=== PATIENT | female | born 1970 | race Caucasian/White ===

== ENCOUNTER 2019-02-01 14:56 | Inpatient (IN) ==
[2019-02-01] MEDS ORDERED: TYLENOL PO PRN (17:09)
[2019-02-01] MEDS: NORCO-10 PO PRN ×2 (17:33→21:58)
[2019-02-01] MEDS ORDERED: SALINE LOCK IV FLUID XX ONE (18:19)
[2019-02-01] MEDS ORDERED: ROCEPHIN 1 GM in NS 50 ML IV ONE (18:23)
[2019-02-01] MEDS ORDERED: NS 500 ML ONE (19:38)
[2019-02-01] MEDS ORDERED: LYRICA PO SCH (21:00)
[2019-02-01] MEDS: LYRICA PO SCH (21:58)
[2019-02-01] MEDS: GLUCOPHAGE PO SCH (21:59)
[2019-02-01] MEDS: HUMULIN N SUBQ SCH (21:59)
[2019-02-02] MEDS: PERCOCET-10 PO SCH ×2 (00:09→21:23)
[2019-02-02] MEDS: NORCO-10 PO PRN ×4 (04:14→16:08)
[2019-02-02] MEDS: HUMULIN N SUBQ SCH ×3 (05:16→18:20)
[2019-02-02] MEDS: ACTOS PO SCH (08:21)
[2019-02-02] MEDS: CYMBALTA PO SCH (08:22)
[2019-02-02] MEDS: PRILOSEC PO SCH (08:22)
[2019-02-02] MEDS: LYRICA PO SCH ×2 (08:23→21:24)
[2019-02-02 08:44] LABS: BASO# 0.02 X1000 (0.0-0.2); BASO% 0.3 % (0.0-0.8); EOS# 0.25 X1000 (0.0-0.7); EOS% 3.5 % (0.0-10.0); HEMATOCRIT 42.5 % (37.0-47.0); HEMOGLOBIN 14.2 g/dL (12.0-16.0); IMM GRAN# 0.08 X1000 (0.0-0.04); IMM GRAN% 1.1 % (0.0-0.5); LYMPH# 2.54 X1000 (1.2-3.4); MCH 29.2 PG (27-31); MCHC 33.4 g/dL (33-37); MCV 87.4 FL (81-99); MONO# 0.48 X1000 (0.11-0.59); MONO% 6.8 % (1.7-9.3); MPV 10.6 FL (7.4-10.4); NEUT# 3.68 X1000 (1.4-6.5); NEUT% 52.3 % (42.2-75.2); PLT 246 X1000 (130-400); RBC 4.86 XMIL (4.2-5.4); RDW 13.6 % (11.5-14.5); WBC 7.05 X1000 (4.8-10.8)
[2019-02-02 08:51] LABS: HEMOGLOBIN A1C 9.2 % (4.8-6.0)
[2019-02-02] MEDS ORDERED: CYMBALTA PO SCH (09:00)
[2019-02-02 09:07] LABS: AGAP 13; ALB/GLOB RATIO 0.9; ALBUMIN 3.4 g/dL (3.5-5.0); ALKALINE PHOSPHATASE 60 U/L (32-104); BUN 10 mg/dL (8-22); CALCIUM 8.3 mg/dL (8.8-10.2); CHLORIDE 99 mmol/L (98-107); COSMO 276; CREATININE 0.6 mg/dL (0.5-0.9); ESTIMATED GFR > 60; GLUCOSE 220 mg/dL (70-104); GOT 11 U/L (10-30); GPT 8 U/L (10-36); POTASSIUM 4.2 mmol/L (3.5-5.1); SODIUM 135 mmol/L (136-145); TCO2 23 mmol/L (25-35); TOTAL BILIRUBIN 0.24 mg/dL (0.20-1.00); TOTAL PROTEIN 7.4 g/dL (6.3-8.3)
--- NOTE | 2019-02-02 10:58 | ORTHOPAEDICS CONSULTATION ---
DATE: 02/02/2019 CHIEF COMPLAINT: Right hand pain. HISTORY OF PRESENT ILLNESS: Ms. Farmer is a 49-year-old female whom I have seen previously for Charcot of her lower extremity which ultimately ended up in amputation. She is a patient of Dr. Macias'marcial. He saw her on 02/01/2019 in the clinic. She developed a lot of erythema and swelling to the right middle finger. He ended up admitting her to the hospital for IV antibiotics. It sounds like he did a wound culture yesterday as well. PAST MEDICAL HISTORY: Diabetes. PAST SURGICAL HISTORY: Left index finger amputation by Dr. Dee on 08/20/2018, right below- knee amputation, infected Charcot. MEDICATIONS: Per the medical record. ALLERGIES: No known drug allergies. PHYSICAL EXAMINATION: Ms. Farmer is a 49-year-old female, lying in bed. She appeared to be in no acute distress. Head and Neck: Normocephalic and atraumatic. Respirations: Nonlabored breathing. Cardiovascular: Regular pulse. Abdomen is obese but nontender to palpation. Right Upper Extremity Examination: She does have erythema to the distal tip of the middle finger. It is swollen. There is a wound on the radial volar aspect. It does go down to the subcutaneous tissue. I do not see or probe any bone or tendon. She does have full range of motion. It really does not have any tenderness to palpation down the flexor tendon sheath. ASSESSMENT: Right middle finger cellulitis. PLAN: Ms. Farmer has that the wound on more the radial aspect of that middle finger. I think that has gotten infected. I do not think is going down to the flexor tendon sheath at this point. I am okay with watching her with IV antibiotics over the next day or so to see if she starts responding. If she is responding, then we can continue with nonoperative treatment. If she does not respond, we may end up ordering an MRI to better evaluate for osteomyelitis and if there then is osteomyelitis there, we would perform a middle finger amputation but we will watch her over the next few days and we will see how she responds. cc: MD Adam Gonzalez MD
[2019-02-02] MEDS: GLUCOPHAGE PO SCH ×2 (11:59→21:24)
[2019-02-02] MEDS: ZOFRAN ODT PO PRN (11:59)
[2019-02-02] MEDS ORDERED: NORCO-10 PO SCH ×2 (21:00)
[2019-02-02] MEDS: ROCEPHIN 1 GM in NS 50 ML IV SCH (21:23)
[2019-02-03] MEDS ORDERED: NORCO-10 PO SCH ×2 (05:00→15:00)
[2019-02-03] MEDS: HUMULIN N SUBQ SCH ×3 (06:15→21:09)
[2019-02-03] MEDS: PRILOSEC PO SCH (09:49)
[2019-02-03] MEDS: GLUCOPHAGE PO SCH ×2 (09:49→21:08)
[2019-02-03] MEDS: LYRICA PO SCH ×2 (09:49→21:07)
[2019-02-03] MEDS: ACTOS PO SCH (09:49)
[2019-02-03] MEDS: CYMBALTA PO SCH (09:49)
[2019-02-03] MEDS: NORCO-10 PO PRN ×3 (09:49→18:43)
[2019-02-03] MEDS: PERCOCET-10 PO SCH (21:07)
[2019-02-03] MEDS: ROCEPHIN 1 GM in NS 50 ML IV SCH (21:08)
[2019-02-04] MEDS: NORCO-10 PO PRN ×5 (01:08→20:04)
[2019-02-04] MEDS ORDERED: A & D OINTMENT TOP PRN (09:11)
[2019-02-04] MEDS ORDERED: AUGMENTIN PO SCH (09:15)
--- NOTE | 2019-02-04 09:20 | Diag Imaging Result Doc PS360 ---
EXAM: MRI UPPER EXT JT W/O CON-RIGHT 02/04/2019 HISTORY: finger osteomyelitis TECHNIQUE: Coronal proton density fat sat, 3-D merge, T1 and, sagittal STIR, axial proton density fat sat, T1 fat sat, axial T1 fat sat postcontrast and coronal T1 postcontrast fat sat. COMMENT: The current study is compared with the previous study of 08/19/2018. There are no plain radiographs more recent than 08/19/2018. There is apparent bony destruction of the distal phalanx of the middle finger. There is marrow edema and soft tissue swelling and edema in the fingertip. There is gadolinium enhancement in the distal phalanx and soft tissues of the distal middle finger. There is also some enhancement in the marrow proximally of the middle phalanx of the middle finger. IMPRESSION: Cellulitis and osteomyelitis distally in the middle finger involving the distal phalanx and middle phalanx. Electronically signed by Josiah Bosch 02/04/2019 9:18 AM
[2019-02-04] MEDS: PRILOSEC PO SCH (10:06)
[2019-02-04] MEDS: CYMBALTA PO SCH (10:06)
[2019-02-04] MEDS: GLUCOPHAGE PO SCH ×2 (10:06→20:04)
[2019-02-04] MEDS: LYRICA PO SCH ×2 (10:06→20:04)
[2019-02-04] MEDS: ACTOS PO SCH (10:07)
[2019-02-04] MEDS: HUMULIN N SUBQ SCH ×2 (10:07→20:05)
[2019-02-04] MEDS: ZOFRAN ODT PO PRN ×2 (10:13→23:31)
--- NOTE | 2019-02-04 12:32 | ORTHOPAEDICS PROGRESS NOTE ---
DATE: 02/04/2019 SUBJECTIVE: Ms. Farmer is lying in bed this morning. Overall her pain seems controlled. She says that the finger seems to be doing a little better. OBJECTIVE: RIGHT UPPER EXTREMITY EXAM: Finger looks about the same as it did the other day. She has some erythema still to the distal tip of the finger, an open sore there. I do not see any active drainage out of that area. I do not see any erythema running down past the PIP joint. ASSESSMENT: Right middle finger cellulitis with a diabetic hand ulcer. PLAN: I am going to order an MRI of Ms. Farmer' finger better evaluate for osteomyelitis. We will see what that shows. I did discuss with her we may end up having to do a finger amputation if it does look like it is infected. We will know more after the MRI. cc: MD Adam Gonzalez MD
[2019-02-04] MEDS ORDERED: DYNAPEN PO SCH (14:00)
[2019-02-04] MEDS: VANCOMYCIN 1,500 MG in NS 250 ML IV SCH (17:33)
[2019-02-04] MEDS: PERCOCET-10 PO SCH (23:30)
[2019-02-05] MEDS: NORCO-10 PO PRN ×6 (01:52→22:26)
[2019-02-05] MEDS: HUMULIN N SUBQ SCH ×2 (08:37→22:47)
[2019-02-05] MEDS: LYRICA PO SCH ×2 (10:17→22:48)
[2019-02-05] MEDS: PRILOSEC PO SCH (10:17)
[2019-02-05] MEDS: GLUCOPHAGE PO SCH ×2 (10:17→22:55)
[2019-02-05] MEDS: CYMBALTA PO SCH (10:18)
[2019-02-05] MEDS: ACTOS PO SCH (10:18)
[2019-02-05] MEDS: VANCOMYCIN 1,500 MG in NS 250 ML IV SCH (15:01)
[2019-02-05] MEDS: ZOFRAN ODT PO PRN (18:02)
[2019-02-05] MEDS ORDERED: A & D OINTMENT TOP PRN (18:05)
[2019-02-06] MEDS: PERCOCET-10 PO SCH ×3 (00:41→23:56)
[2019-02-06] MEDS: NORCO-10 PO PRN ×5 (04:12→21:35)
[2019-02-06] MEDS: LYRICA PO SCH ×2 (08:39→21:35)
[2019-02-06] MEDS: HUMULIN N SUBQ SCH ×2 (09:10→21:27)
[2019-02-06] MEDS: ACTOS PO SCH (09:11)
[2019-02-06] MEDS: CYMBALTA PO SCH (09:11)
[2019-02-06] MEDS: PRILOSEC PO SCH (09:11)
[2019-02-06] MEDS: GLUCOPHAGE PO SCH ×2 (09:11→21:28)
[2019-02-06] MEDS: ZOFRAN ODT PO PRN (10:34)
[2019-02-06 12:51] LABS: AGAP 13; BUN 9 mg/dL (8-22); CALCIUM 8.9 mg/dL (8.8-10.2); CHLORIDE 101 mmol/L (98-107); COSMO 284; CREATININE 0.7 mg/dL (0.5-0.9); ESTIMATED GFR > 60; GLUCOSE 265 mg/dL (70-104); POTASSIUM 4.5 mmol/L (3.5-5.1); SODIUM 138 mmol/L (136-145); TCO2 24 mmol/L (25-35)
--- NOTE | 2019-02-06 15:16 | CONSULTATION ---
DATE OF CONSULTATION: 02/06/2019 CONCLUSION: The patient has an enterococcal and oxacillin-sensitive Staph aureus right middle finger osteomyelitis. RECOMMENDATIONS: I agree with treating the patient with vancomycin. I would suggest treating for a total of 6 weeks. I have ordered that a PICC should be placed tomorrow and specifically, I put that the PICC should be put in the left arm. DISCUSSION: The patient tells me that for the past 6 weeks she has had erythema and swelling of the right middle finger. She has been on antibiotics as an outpatient, but it has not cleared up the infection. A culture from the hand is growing an oxacillin-sensitive Staph aureus and Enterococcus. The patient's CBC shows a white count of 7,050, hemoglobin 14.2, and platelet count 246,000. Creatinine is 0.7. GFR is greater than 60. TUCKPOINTER HISTORY: She is a 1, para 0, AB1. PREVIOUS HOSPITALIZATIONS AND OPERATIONS: She has had a miscarriage, cholecystectomy, hernia repair, bilateral carpal tunnel surgeries, a right raudy-fxb-xety amputation. REVIEW OF SYSTEMS: Eyes and ears: The patient does not have any problems seeing or hearing. Neck: No stiffness. Respiratory: No cough or shortness of breath. Cardiac: No chest pain or palpitations. GI: No nausea, vomiting, or diarrhea. : No dysuria or flank pain. Bones, joints, muscle: See present illness. Neurologic: The patient has peripheral neuropathy manifested by decreased sensation in her hands and feet. Integument: No rash. MEDICAL DISEASES: Positive for obesity, diabetes mellitus, neuropathy, and polycystic ovarian syndrome. INFECTIOUS DISEASE HISTORY: Positive for pneumonia, urinary tract infection, sinusitis, bronchitis, and left hand and right leg infection which eventually the patient had to have a right [id number]-zbz-ufyg amputation due to a Charcot foot. FAMILY HISTORY: Positive for diabetes mellitus, hypertension, myocardial infarction, stroke, and cancer. SOCIAL HISTORY: [place] She is single. She lives with her mother. She is disabled. ALLERGIES: Her chart lists no known allergies. HOME MEDICATIONS: Diazepam, Cymbalta, hydrocodone, insulin, metformin, naproxen, omeprazole, Actos, and Lyrica. PHYSICAL EXAMINATION: Vital Signs: Temperature is 97.9 degrees, pulse 77, respirations 20, blood pressure 148/71. Patient weighs 332 pounds. General: This is an obese, middle-aged female. She is in no acute distress. Head, eyes, ears, nose, and throat: She can hear my spoken words and see near objects. She is wearing glasses. There is no white coating on her tongue. Neck: No meningismus. Lungs: Clear to auscultation. Cardiovascular: Heart rate is regular. Abdomen: Soft and nontender. Extremities: The patient has a right zmefw-uif-vfpx amputation. The incision is thoroughly healed. The patient's right middle finger is erythematous and swollen. The patient has had amputation of the left second finger. The amputation site is not red or draining. Neurologic: The patient is alert. She can move her extremities. There is no tremor. Her memory as regarding her medical history is intact. Integument: No rash noted. Thank you for the consult. cc: MD Adam Jones MD
[2019-02-06] MEDS: VANCOMYCIN 1,500 MG in NS 250 ML IV SCH (15:19)
[2019-02-07] MEDS: NORCO-10 PO PRN ×5 (01:47→19:46)
[2019-02-07 06:46] LABS: INR 0.99; PROTIME 13.2 Seconds (11.0-16.0)
[2019-02-07] MEDS: GLUCOPHAGE PO SCH ×2 (09:43→21:44)
[2019-02-07] MEDS: CYMBALTA PO SCH (09:43)
[2019-02-07] MEDS: LYRICA PO SCH ×2 (09:43→21:43)
[2019-02-07] MEDS: PRILOSEC PO SCH (09:43)
[2019-02-07] MEDS: ACTOS PO SCH (09:43)
[2019-02-07] MEDS: HUMULIN N SUBQ SCH ×2 (09:46→21:43)
[2019-02-07] MEDS ORDERED: NS 250 ML ONE (10:24)
[2019-02-07] MEDS: VANCOMYCIN 1,750 MG in NS 250 ML IV SCH (11:59)
--- NOTE | 2019-02-07 14:23 | ORTHOPAEDICS PROGRESS NOTE ---
DATE: 02/07/2019 SUBJECTIVE: Ms. Farmer is lying in bed this morning. Overall, she feels like the finger is about the same. OBJECTIVE: On the right upper extremity exam, she still has erythema to the right middle finger. Still an open wound that is draining. The erythema is not proceeding proximally though and does not go down into her palm either. IMAGING: MRI was reviewed, which shows osteomyelitis of the right middle finger distal and middle phalanges. ASSESSMENT: Right middle finger osteomyelitis. PLAN: I discussed with Ms. Farmer about her MRI. We did make her NPO this morning for possible surgical intervention today. She really does not want to undergo an amputation right now. She does want to talk to her family a little bit longer and come up with a final decision so we will postpone doing any surgical intervention today. She is going to talk to her family today. We will reconvene in the morning, and come to a final decision at that time. I did discuss with her the likelihood of eradicating the infection without surgery is almost zero. cc: MD Adam Gonzalez MD
--- NOTE | 2019-02-07 20:07 | INFECTIOUS DISEASE PROGRESS NO ---
DATE: 02/07/2019 PRESENT ILLNESS: Ms. Farmer is being treated for an enterococcal and oxacillin- sensitive Staph aureus osteomyelitis to her right middle finger. MEDICATIONS: She is receiving IV vancomycin, with dosing managed by Dr. Macias. PHYSICAL EXAMINATION: Vital Signs: Temperature is 98 degrees, pulse rate 78, respiratory rate 18, blood pressure 151/79, O2 saturations 97% on room air. General: This is a chronically ill- appearing, middle-aged female. She is sitting up in bed, currently in no acute distress. HEENT: Atraumatic, normocephalic. Oral mucous membranes are pink and moist. Conjunctivae are pink. Neck: Supple. Trachea is midline. Cardiovascular: Heart rate is regular. S1, S2 noted. Respiratory: Lung sounds are clear to auscultation bilaterally. No work of breathing is noted. An integumentary. Integumentary: Skin is warm and dry. There is a dressing over the right middle finger which has some underlying bloody drainage noted. The left upper arm has a PICC line that site is without edema, erythema, or drainage. She has an old incision to the right below-the- knee amputation that is clean and dry with a scar. Abdomen: Soft, obese and nontender. Bowel sounds are active. Neurologic: She is awake, alert, oriented, and able to move around in the bed independently. LABORATORY AND X-RAY: None available today. However, her right middle finger did grow an enterococcal faecalis and an oxacillin-sensitive Staph aureus. No imaging reports today. ASSESSMENT AND PLAN: Ms. Farmer is being treated for a right middle finger distal and middle phalanx osteomyelitis as seen on MRI. She is receiving IV vancomycin which we agree with continuing. After talking to the patient, she is going back and forth on the decision to have that finger amputated, which is the plan per Dr. Ruiz. We have explained to her that she will just need less antibiotics if the osteomyelitis is removed. However, she seems to think that she needs an extended period of antibiotics regardless of whether or not the finger is amputated. Dr. Og has spoken with her at length. We will await her final decision, but will continue vancomycin for now. These plans have been discussed with and recommended by Dr. Og. COMORBIDITIES: For Ms. Farmer include morbid obesity, diabetes mellitus, peripheral neuropathy, PCOS, and multiple previous amputations. Dictated by FRANCHESCA Fabian for Joe Og MD cc: MD Adam Jones MD MTDD
[2019-02-07] MEDS: PERCOCET-10 PO SCH (21:47)
[2019-02-08] MEDS: NORCO-10 PO PRN ×5 (04:11→23:50)
[2019-02-08 06:35] LABS: BASO# 0.03 X1000 (0.0-0.2); BASO% 0.4 % (0.0-0.8); EOS# 0.37 X1000 (0.0-0.7); EOS% 4.9 % (0.0-10.0); HEMATOCRIT 34.6 % (37.0-47.0); HEMOGLOBIN 11.1 g/dL (12.0-16.0); IMM GRAN# 0.03 X1000 (0.0-0.04); IMM GRAN% 0.4 % (0.0-0.5); LYMPH# 2.59 X1000 (1.2-3.4); LYMPH% 34.2 % (20.5-51.1); MCH 28.7 PG (27-31); MCHC 32.1 g/dL (33-37); MCV 89.4 FL (81-99); MONO# 0.73 X1000 (0.11-0.59); MONO% 9.6 % (1.7-9.3); MPV 10.7 FL (7.4-10.4); NEUT# 3.82 X1000 (1.4-6.5); NEUT% 50.5 % (42.2-75.2); PLT 299 X1000 (130-400); RBC 3.87 XMIL (4.2-5.4); RDW 13.3 % (11.5-14.5); WBC 7.57 X1000 (4.8-10.8)
--- NOTE | 2019-02-08 08:18 | ORTHOPAEDICS PROGRESS NOTE ---
DATE: 02/08/2019 SUBJECTIVE: Ms. Farmer lying in bed this morning. Pain in the finger about the same. OBJECTIVE: Right upper extremity exam: The middle finger still has a fairly large open area to it, still very erythematous to the tip, especially over the distal and middle phalanges. With that, erythema does not extend up past the MCP joint. ASSESSMENT: Right middle finger osteomyelitis of the middle phalanx and distal phalanx. PLAN: Ms. Farmer had a chance yesterday to talk to her family. After she discussed with her family everything going on, they all really agreed on proceeding with a right middle finger amputation. So, we will look for a date to be able to get her on the schedule for right middle finger amputation. Right now she is on IV antibiotics still, and just does not seem to be resolving that cellulitis infection. Which I did discuss with her osteomyelitis is very difficult to eradicate from the IV antibiotic standpoint. So, we will plan on more than likely this , which will be 02/10/2019, for right middle finger amputation. I went over with her the procedure, risks, benefits, potential complications. Risks include, but are not limited to infection, wound healing problems, damage to nerves, arteries, veins, phantom limb pain, anesthesia-related risk, and blood clots. After discussing these with the patient, she expressed understanding and wished to proceed. We will get her on the schedule over the next 2 days. cc: MD Adam Gonzalez MD
[2019-02-08] MEDS: LYRICA PO SCH ×2 (09:18→21:14)
[2019-02-08] MEDS: CYMBALTA PO SCH (09:19)
[2019-02-08] MEDS: PRILOSEC PO SCH (09:20)
[2019-02-08] MEDS: GLUCOPHAGE PO SCH ×2 (09:20→21:15)
[2019-02-08] MEDS: HUMULIN N SUBQ SCH ×2 (09:21→21:16)
[2019-02-08] MEDS: ACTOS PO SCH (09:21)
[2019-02-08] MEDS: VANCOMYCIN 1,750 MG in NS 250 ML IV SCH (12:30)
[2019-02-08] MEDS: ZOFRAN ODT PO PRN (18:20)
[2019-02-08] MEDS: PERCOCET-10 PO SCH (21:14)
[2019-02-09] MEDS: NORCO-10 PO PRN ×5 (03:51→22:47)
--- NOTE | 2019-02-09 07:35 | ORTHOPAEDICS PROGRESS NOTE ---
DATE: 02/09/2019 SUBJECTIVE: Ms. Farmer is lying in bed this morning and overall feeling okay. OBJECTIVE: Right upper extremity exam, she has erythema to that right finger. It still remains about the same as it was yesterday. ASSESSMENT: Right middle finger osteomyelitis, middle phalanx and distal phalanx. PLAN: We will plan on amputation of the right middle finger tomorrow. She will be n.p.o. after midnight tonight. cc: MD Adam Gonzalez MD
[2019-02-09] MEDS: PRILOSEC PO SCH (08:04)
[2019-02-09] MEDS: ACTOS PO SCH (08:04)
[2019-02-09] MEDS: CYMBALTA PO SCH (08:04)
[2019-02-09] MEDS: GLUCOPHAGE PO SCH ×2 (08:04→20:51)
[2019-02-09] MEDS: LYRICA PO SCH ×2 (08:04→20:51)
[2019-02-09] MEDS: HUMULIN N SUBQ SCH ×2 (09:04→21:18)
[2019-02-09] MEDS: MIRALAX PO SCH ×2 (11:54→20:51)
[2019-02-09] MEDS: VANCOMYCIN 1,750 MG in NS 250 ML IV SCH (11:55)
--- NOTE | 2019-02-09 14:04 | INFECTIOUS DISEASE PROGRESS NO ---
DATE: 02/09/2019 PRESENT ILLNESS: The patient has an enterococcal and an oxacillin-sensitive Staph aureus osteomyelitis of the right middle finger. MEDICATIONS: This is the second day of treatment with vancomycin. PHYSICAL EXAMINATION: Vital Signs: Temperature is 98.9 degrees, pulse 83, respirations 20, blood pressure 145/81. General: This is an obese, middle-aged female. She is in no acute distress. HEENT: She can hear my spoken words and see near objects. There is no white coating on her tongue. Neck: No stiffness. Lungs: Clear to auscultation. Cardiovascular: Regular heart rate. Abdomen: Soft and nontender. Extremities: The patient's right middle finger has a dressing around it. I do not see any erythema of the finger. Neurologic: Patient is alert. She can move her extremities. There is no tremor. IMAGING AND LABORATORY DATA: There is no radiographic study. The CBC for today shows a white count of 7570, hemoglobin 11.1, and platelet count 299,000. Culture from the patient's right middle finger grew methicillin-resistant Staph aureus and Enterococcus. ASSESSMENT AND PLAN: The plan now is for the patient to have her right middle finger amputated tomorrow by Dr. Ruiz. I plan on continuing vancomycin until it looks like the finger is healing very well. COMORBIDITIES: Morbid obesity, diabetes mellitus, peripheral neuropathy, and unfortunately, the patient has had multiple prior amputations. cc: MD Adam Jones MD
[2019-02-09] MEDS: PERCOCET-10 PO SCH (20:50)
[2019-02-10] MEDS: NORCO-10 PO PRN ×5 (03:25→19:54)
[2019-02-10] MEDS ORDERED: VERSED ONE (12:17)
[2019-02-10] MEDS ORDERED: XYLOCAINE-MPF 2% ONE (12:17)
[2019-02-10] MEDS ORDERED: DIPRIVAN 1% ONE (12:17)
[2019-02-10] MEDS: HUMULIN N SUBQ SCH ×2 (12:29→22:03)
[2019-02-10] MEDS ORDERED: KETAMINE ONE (12:31)
[2019-02-10] MEDS ORDERED: QUELICIN (DOSE) ONE (12:44)
[2019-02-10] MEDS ORDERED: MARCAINE 0.5% PF ONE (12:48)
[2019-02-10] MEDS ORDERED: PEPCID ONE (13:01)
[2019-02-10] MEDS ORDERED: REGLAN ONE (13:01)
[2019-02-10] MEDS ORDERED: ZOFRAN ONE (13:15)
[2019-02-10] MEDS: VANCOMYCIN 1,750 MG in NS 250 ML IV SCH (13:15)
[2019-02-10] MEDS ORDERED: DECADRON ONE (13:15)
--- NOTE | 2019-02-10 13:36 | ORTHOPAEDICS PROGRESS NOTE ---
DATE: 02/10/2019 SUBJECTIVE: Ms. Farmer is lying in bed this morning. Overall feeling okay. OBJECTIVE: Right upper extremity exam, she still has erythema to that finger over the distal and middle phalanges. She has a big open wound on the radial aspect of that middle finger as well and it is draining just a little bit. There is no erythema extending past the MCP joint. ASSESSMENT: 1. Right middle finger osteomyelitis in the distal phalanx and middle phalanx. 2. Right diabetic finger ulcer. PLAN: I discussed with Ms. Farmer again about amputation of this finger. Being that she has osteomyelitis in the middle phalanx and the distal phalanx and still a big open wound, I think the best course of action would be to amputate the finger, which had to be done on the left side. Several months ago because of infection. I went over with her the procedure, risks, benefits, potential complications. Risks include, but are not limited to, infection, wound healing problems, damage to nerves, arteries, veins, numbness, phantom limb pain, anesthetic risk and blood clots. After discussing these with the patient, she expressed understanding and wished to proceed. We will get this done today for a right middle finger amputation. cc: MD Adam Gonzalez MD
[2019-02-10] MEDS: GLUCOPHAGE PO SCH ×2 (14:45→22:03)
[2019-02-10] MEDS: MIRALAX PO SCH ×2 (14:46→22:03)
[2019-02-10] MEDS: MORPHINE IV PRN ×3 (14:53→22:03)
[2019-02-10] MEDS: PRILOSEC PO SCH (14:53)
[2019-02-10] MEDS: CYMBALTA PO SCH (14:53)
[2019-02-10] MEDS: ACTOS PO SCH (14:53)
[2019-02-10] MEDS: LYRICA PO SCH ×2 (15:02→22:37)
--- NOTE | 2019-02-10 15:17 | OPERATIVE NOTE ---
PROCEDURE DATE: 02/10/2019 PREOPERATIVE DIAGNOSIS: Right middle finger osteomyelitis of the middle phalanx and the distal phalanx with ulceration. POSTOPERATIVE DIAGNOSIS: Right middle finger osteomyelitis of the middle phalanx and the distal phalanx with ulceration. PROCEDURE: Right middle finger amputation at the metacarpal phalangeal joint. SURGEON: Dr. Srejio Ruiz. DISTRICT COURT ADMINISTRATOR: FRANCHESCA Delong who was an integral part of the case helping with all aspects of the case. She helped to increase our OR efficiency greatly. ANESTHESIA: General with LMA. TIME OF TOURNIQUET: Forearm tourniquet was up for less than 30 minutes. DISPOSITION: To PACU and hemodynamically stable. INDICATIONS FOR PROCEDURE: Ms. Farmer is a 49 year old female, who I have taken care of in the past for her right lower extremity. Ultimately, with her Charcot, we ended having to do a below- the-knee amputation. Her index finger on her left side got infected a few months back. She underwent amputation of that finger with Dr. Dee. She was recently admitted to the hospital from Dr. Macias's office with a right middle finger infection. We have done several days of IV antibiotics. MRI did show a lot of osteomyelitis in the middle and distal phalanges of that right middle finger. She has a large wound on the radial aspect of the finger and so I discussed with her about amputation. She expressed understanding and wished to proceed. DESCRIPTION OF PROCEDURE: Ms. Farmer was identified in the preoperative holding area. The right middle finger was marked out as the correct surgical site. She was then wheeled to the operating room, and placed supine on the operating table. All bony prominences were well padded. She was induced under general anesthesia. LMA was placed. Right upper extremity was then prepped with Betadine solution, and draped in normal sterile fashion. Surgical pause was performed. We identified the correct patient, correct side, and the correct procedure. Preop antibiotics were given. Esmarch was used at the level of the wrist to the mid forearm and Esmarch was used as the tourniquet at the mid forearm. I then made a fishmouth incision over the MCP joint at the right middle finger. Dissection was carried down all the way to bone, and then through the joint and amputated the finger and sent to Pathology. The tissue around that area actually looked really good. We did irrigate everything copiously with normal saline, and we gained hemostasis with electrocautery. I then closed the deep layers really including the extensor alexander and flexors over the metacarpal bone. I then closed down the incision with 2-0 Vicryl for the subcutaneous layer, and nylon on the skin. Adaptic, 4x4s, and a soft dressing was applied. She was then awoke from general anesthesia, moved to her own bed, and taken to PACU in stable condition. PLAN: Postoperative Diagnosis, she is nonweightbearing right upper extremity for now. I will see her tomorrow. cc: MD Adam Gonzalez MD
[2019-02-10] MEDS ORDERED: PERIDEX MT SCH (21:00)
[2019-02-11] MEDS: PERCOCET-10 PO SCH ×2 (00:14→22:48)
[2019-02-11] MEDS: NORCO-10 PO PRN ×4 (02:04→16:59)
[2019-02-11] MEDS: MORPHINE IV PRN ×3 (03:26→20:35)
--- NOTE | 2019-02-11 08:21 | ORTHOPAEDICS PROGRESS NOTE ---
DATE: 02/11/2019 SUBJECTIVE: Ms. Farmer was sitting up in bed this morning. She is complaining of a little bit of pain on the right upper extremity. OBJECTIVE: Right upper extremity exam, dressing is clean, dry, and intact. She is able to move her other fingers and she has good capillary refill to the fingers. ASSESSMENT: Status post right middle finger amputation for osteomyelitis. PLAN: I discussed with Ms. Farmer about the finger. I think everything looked good. Once we amputated that tissue it did not look infected so I think we got all the infection with the amputation. She is still on IV antibiotics per Dr. Og's recommendations and we will continue to follow. cc: MD Adam Gonzalez MD
[2019-02-11] MEDS: PRILOSEC PO SCH (09:46)
[2019-02-11] MEDS: HUMULIN N SUBQ SCH ×2 (09:46→22:52)
[2019-02-11] MEDS: GLUCOPHAGE PO SCH ×2 (09:46→20:35)
[2019-02-11] MEDS: CYMBALTA PO SCH (09:46)
[2019-02-11] MEDS: MIRALAX PO SCH ×2 (09:47→20:35)
[2019-02-11] MEDS: LYRICA PO SCH ×2 (09:52→20:35)
[2019-02-11] MEDS: ACTOS PO SCH (09:52)
--- NOTE | 2019-02-11 13:28 | INFECTIOUS DISEASE PROGRESS NO ---
DATE: 02/11/2019 PRESENT ILLNESS: Ms. Farmer is status post right middle finger amputation at the metacarpal phalangeal joint for osteomyelitis with oxacillin-sensitive Staph aureus and Enterococcus faecalis growth. MEDICATIONS: She is receiving IV vancomycin. PHYSICAL EXAMINATION: Vital Signs: Temperature is 97.9 degrees, pulse rate 68, respiratory rate 20, blood pressure 130/71, O2 saturation 98% on room air. General: This is a chronically ill- appearing, morbidly obese female. She is sitting up in bed, currently in no acute distress. HEENT: Atraumatic, normocephalic. Oral mucous membranes are pink and moist. Conjunctivae are pink. Neck: Supple. Trachea is midline. Cardiovascular: Heart rate is regular. S1, S2 noted. Respiratory: Lung sounds are clear to auscultation bilaterally. No work of breathing is noted. Abdomen: Soft, obese and nontender. Bowel sounds are active. Extremities: There is an Geoffrey wrap dressing in place to the right hand without any drainage. There is a right whetn-tau-iagj amputation and has had some other digits amputated as well. The PICC in the left upper arm is without edema, erythema, or drainage to the site. Neurologic: She is awake, alert, oriented, and able to move around in the bed independently. LABORATORY AND X-RAY: None available today, but yesterday her creatinine was 0.6. Her right hand grew an oxacillin-sensitive Staph aureus and enterococcal faecalis. No imaging reports today. ASSESSMENT AND PLAN: Ms. Farmer is status post amputation to the right middle finger for osteomyelitis. She is receiving IV vancomycin which we will continue at this time. The plan is to continue the vancomycin until we see that she is healing appropriately without any signs of infection. These plans have been discussed with and recommended by Dr. Og. COMORBIDITIES: Comorbidities for Ms. Farmer include morbid obesity, diabetes mellitus, peripheral neuropathy and prior amputations. Dictated by FRANCHESCA Fabian for Joe Og MD cc: MD Adam Jones MD MTDD
[2019-02-11] MEDS: VANCOMYCIN 1,750 MG in NS 250 ML IV SCH (13:51)
[2019-02-12] MEDS: NORCO-10 PO PRN ×4 (01:25→23:48)
[2019-02-12] MEDS: MORPHINE IV PRN ×4 (03:30→20:41)
[2019-02-12] MEDS: HUMULIN N SUBQ SCH ×3 (08:12→20:47)
[2019-02-12] MEDS: GLUCOPHAGE PO SCH ×2 (08:12→20:46)
[2019-02-12] MEDS: CYMBALTA PO SCH (08:13)
[2019-02-12] MEDS: PRILOSEC PO SCH (08:13)
[2019-02-12] MEDS: ACTOS PO SCH (08:13)
[2019-02-12] MEDS: LYRICA PO SCH ×2 (08:13→20:46)
[2019-02-12] MEDS: MIRALAX PO SCH ×2 (08:13→20:45)
--- NOTE | 2019-02-12 09:32 | ORTHOPAEDICS PROGRESS NOTE ---
DATE: 02/12/2019 Ms. Farmer is seen status post amputation of her finger for sepsis and osteomyelitis. She is doing well at the present time. Her bandage is clean and dry. We will plan on dressing changes beginning today. She can be mobilized as tolerated. We will check the wound again tomorrow. cc: MD Adam Gilbert MD
[2019-02-12] MEDS: VANCOMYCIN 1,750 MG in NS 250 ML IV SCH (11:01)
[2019-02-12] MEDS: PERCOCET-10 PO SCH (22:18)
[2019-02-13] MEDS: MORPHINE IV PRN ×4 (01:27→21:07)
[2019-02-13] MEDS: NORCO-10 PO PRN ×4 (03:48→17:09)
[2019-02-13] MEDS: ACTOS PO SCH (08:17)
[2019-02-13] MEDS: PRILOSEC PO SCH (08:17)
[2019-02-13] MEDS: CYMBALTA PO SCH (08:17)
[2019-02-13] MEDS: LYRICA PO SCH ×2 (08:17→21:06)
[2019-02-13] MEDS: HUMULIN N SUBQ SCH ×3 (08:17→21:07)
[2019-02-13] MEDS: GLUCOPHAGE PO SCH ×2 (08:18→21:06)
--- NOTE | 2019-02-13 11:48 | ORTHOPAEDICS PROGRESS NOTE ---
DATE: 02/13/2019 Ms. Farmer is seen status post excision of a digit. The incision is clean and dry. I have changed the bandage today. She is afebrile. There were no signs of drainage. We will be available as needed at this point. Dr. Ruiz will be back tomorrow. cc: MD Adam Gilbert MD
--- NOTE | 2019-02-13 12:09 | PROGRESS NOTE ---
DATE: 02/13/2019 SUBJECTIVE: The patient's chart was reviewed. In summary, patient was admitted on 10/01/2018 with cellulitis of the right long finger. Patient was placed on IV antibiotics. Orthopedic consultation was pursued. MRI of the upper extremity was performed revealing cellulitis and associated osteomyelitis distally in the middle finger involving the distal phalanx and middle phalanx. Ultimately, patient required right middle finger amputation at the metacarpophalangeal joint on 02/10/2019. The patient's postoperative course has been complicated only to pain. While hospitalized, patient's blood sugars have been monitored closely. Dr. Macias has adjusted the NPH insulin as appropriate. This morning, upon my arrival, she was sitting upright in bed. She stated she felt reasonably well with the exception of some pain. She denies current fevers, chills, nausea, vomiting, shortness of breath, or chest discomfort. P.o. intake is adequate. OBJECTIVE: Vital signs: T-max 98.4 degrees, heart rate 69 to 103, respirations 16 to 20, blood pressure 123 to 187 over 69 to 98. General: No acute distress. Cardiovascular: Regular rate and rhythm. No significant murmurs, rubs, or gallops. Pulmonary: Clear to auscultation bilaterally. Abdomen: Soft, nontender, nondistended. Positive bowel sounds. Extremities: Left lower extremity without clubbing, cyanosis, or edema. Right hand is addressed per Orthopedics. The patient does have several additional ulcerations of the distal fingers on the right hand and left hand. Dermatologic: Evaluation is as described. LABORATORY DATA: None. ASSESSMENT AND PLAN: 1. Right long finger osteomyelitis. The patient is postoperative day #3 amputation as described above. With the exception of pain, patient has done reasonably well. We will continue her current pain regimen. We will continue antibiotics per Dr. Og's recommendations. We will follow closely. 2. Type 2 diabetes. On 02/11/2019, patient's NPH was increased to 20 units q.12 hours. Blood sugars have improved, although not to goal. At this point, I feel it is too soon to readjust insulin regimen. We will defer this to Dr. Macias in the upcoming days. 3. Hypertension. The patient has had labile blood pressures while hospitalized. It appears that she has been treated with olmesartan/hydrochlorothiazide as an outpatient. We will defer resuming this to Dr. Macias. 4. Prophylaxis. At this point, the benefits of starting low-dose Lovenox outweighs the risk. We will start prophylactic dosing. 5. Disposition. At this point, patient continues to require halfway care in a hospital setting. We will plan discharge home once appropriate. cc: MD Adam Garcia MD
[2019-02-13] MEDS: LOVENOX SUBQ SCH (12:40)
[2019-02-13] MEDS: MIRALAX PO SCH ×2 (12:40→21:07)
[2019-02-13] MEDS: VANCOMYCIN 1,750 MG in NS 250 ML IV SCH (12:42)
[2019-02-13] MEDS: PERCOCET-10 PO SCH (22:52)
[2019-02-14] MEDS: NORCO-10 PO PRN ×5 (00:20→17:40)
[2019-02-14] MEDS: MORPHINE IV PRN ×5 (01:34→20:57)
[2019-02-14 07:17] LABS: BASO# 0.04 X1000 (0.0-0.2); BASO% 0.5 % (0.0-0.8); EOS# 0.42 X1000 (0.0-0.7); EOS% 5.1 % (0.0-10.0); HEMOGLOBIN 10.4 g/dL (12.0-16.0); LYMPH# 3.62 X1000 (1.2-3.4); LYMPH% 43.8 % (20.5-51.1); MCH 28.9 PG (27-31); MCHC 31.5 g/dL (33-37); MCV 91.7 FL (81-99); MONO# 0.66 X1000 (0.11-0.59); MPV 10.5 FL (7.4-10.4); NEUT# 3.52 X1000 (1.4-6.5); NEUT% 42.6 % (42.2-75.2); PLT 290 X1000 (130-400); RDW 13.1 % (11.5-14.5); WBC 8.26 X1000 (4.8-10.8)
[2019-02-14 07:30] LABS: AGAP 11; BUN 7 mg/dL (8-22); CALCIUM 8.6 mg/dL (8.8-10.2); CHLORIDE 99 mmol/L (98-107); COSMO 271; CREATININE 0.6 mg/dL (0.5-0.9); ESTIMATED GFR > 60; GLUCOSE 149 mg/dL (70-104); POTASSIUM 4.1 mmol/L (3.5-5.1); SODIUM 135 mmol/L (136-145); TCO2 25 mmol/L (25-35)
--- NOTE | 2019-02-14 08:17 | ORTHOPAEDICS PROGRESS NOTE ---
DATE: 02/14/2019 SUBJECTIVE: Ms. Farmer is lying in bed this morning. Overall feeling okay. She has been having some pain in the hand. OBJECTIVE: Right upper extremity exam: Dressing was completely taken down today. There is a very small area of the incision that looked like it opened up a little bit on the ulnar side of the amputation site, but there is no drainage noted there, and there is really no erythema around the incision either. We redressed the wound today with just a dry dressing. ASSESSMENT: Status post right middle finger amputation. PLAN: I discussed with Ms. Farmer about her finger. Will have to watch that wound to make sure that things are healing up well for her. She is going to continue to be on IV antibiotics per Dr. Og' recommendations. From an orthopedic standpoint, I am okay with her being discharged, and I will follow her in clinic. I did discuss with her, the possibility of doing a reresection and taking most of the third metacarpal out once she is off intravenous antibiotics and we know that everything is sterilized. She can follow up with me in about 2 weeks in clinic. cc: MD Adam Gonzalez MD
[2019-02-14] MEDS: LOVENOX SUBQ SCH (09:13)
[2019-02-14] MEDS: LYRICA PO SCH ×2 (09:13→21:01)
[2019-02-14] MEDS: GLUCOPHAGE PO SCH ×2 (09:13→21:01)
[2019-02-14] MEDS: CYMBALTA PO SCH (09:13)
[2019-02-14] MEDS: PRILOSEC PO SCH (09:14)
[2019-02-14] MEDS: ICAR-C PO SCH (09:14)
[2019-02-14] MEDS: MIRALAX PO SCH ×2 (09:14→21:02)
[2019-02-14] MEDS: ACTOS PO SCH (09:14)
[2019-02-14] MEDS: NAPROSYN PO SCH ×2 (09:14→21:02)
[2019-02-14] MEDS: PRINIVIL PO SCH (09:15)
[2019-02-14] MEDS: HUMULIN N SUBQ SCH ×2 (09:15→21:49)
[2019-02-14] MEDS: VANCOMYCIN 1,750 MG in NS 250 ML IV SCH (12:55)
--- NOTE | 2019-02-14 17:24 | INFECTIOUS DISEASE PROGRESS NO ---
DATE: 02/14/2019 PRESENT ILLNESS: The patient is status post amputation of the right middle finger which was infected with oxacillin sensitive Staph aureus and Enterococcus faecalis. MEDICATIONS: This is the seventh day of treatment with vancomycin. PHYSICAL EXAMINATION: Vital Signs: Temperature is 99, pulse 70, respirations 14, blood pressure 130/60. General: This is a chronically ill appearing, morbidly obese, female. Today, she is sitting up in a chair and is in no acute distress. Head, Eyes, Ears, Nose, and Throat: She can hear my spoken words and see near objects. She does not have any white coating on her tongue. Neck: No pain with movement. Lungs: Clear to auscultation. Cardiovascular: Heart rate is regular. Extremities: The right hand has a dressing around it. The dressing is intact. The patient also has right below the knee amputation. The patient has a PICC in her left arm and the site is not erythematous or draining. Neurologic: The patient is alert. She can move her extremities. There is no tremor. LABORATORY AND X-RAY: There is no radiographic study. CBC shows a white count of 8260, hemoglobin 10.4, and platelet count 290,000. Creatinine is 0.6. GFR is greater than 60. ASSESSMENT AND PLAN: The patient is status post amputation of her finger. For now, I am going to continue intravenous vancomycin. I have ordered the nurses to page me tomorrow with the next dressing change on the patient's hand. COMORBIDITIES: The patient is morbidly obese. She also has diabetes mellitus, peripheral neuropathy, and prior amputations. cc: MD Adam Jones MD
[2019-02-14] MEDS: PERCOCET-10 PO SCH (22:28)
[2019-02-15] MEDS: MORPHINE IV PRN ×4 (01:35→08:25)
[2019-02-15] MEDS: NORCO-10 PO PRN ×4 (06:02→14:26)
[2019-02-15 08:32] VITALS: BP 150/79
[2019-02-15] MEDS: CYMBALTA PO SCH (08:33)
[2019-02-15] MEDS: MIRALAX PO SCH (08:33)
[2019-02-15] MEDS: HUMULIN N SUBQ SCH (08:33)
[2019-02-15] MEDS: LYRICA PO SCH (08:33)
[2019-02-15] MEDS: ICAR-C PO SCH (08:34)
[2019-02-15] MEDS: ACTOS PO SCH (08:34)
[2019-02-15] MEDS: PRINIVIL PO SCH (08:34)
[2019-02-15] MEDS: GLUCOPHAGE PO SCH (08:34)
[2019-02-15] MEDS: PRILOSEC PO SCH (08:34)
[2019-02-15] MEDS: NAPROSYN PO SCH (08:34)
[2019-02-15] MEDS: LOVENOX SUBQ SCH ×2 (08:34→13:09)
--- NOTE | 2019-02-15 10:01 | DISCHARGE SUMMARY ---
ADMISSION DATE: 02/01/2019 DISCHARGE DATE: 02/15/2019 FINAL DIAGNOSES: 1. Acute osteomyelitis of middle finger of the right hand, status post amputation of same finger. 2. Type 2 diabetes mellitus with diabetic polyneuropathy. 3. Right [id number] amputation. 4. 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 5. Essential hypertension. PRESENT ILLNESS: Ms. Farmer is a 49-year-old morbidly obese white female who has suffered for over 2 years from a blistering skin rash affecting both hands. The blisters eventually turn into deep fissures that become secondarily infected and earlier this year, she required amputation of the left index finger. She presented on the day of admission to my office with increasing pain, redness and swelling in the right middle finger. She had called a week before and prescribed some oral antibiotics without improvement. Physical examination revealed a morbidly obese middle-aged woman. Lungs were clear. Cardiac exam unremarkable. Abdomen obese, soft and not tender. Her right BKA stump was clean, dry and well healed. Her left hand index finger amputation site was also well healed. Multiple deep dry fissures were present on multiple fingers. The right middle finger was quite swollen and distal moderate redness and decreased flexion although active flexion was not severely painful. She was also noted to have [place] neck deformities of the right index finger and some distal phalanx atrophy noted on the fifth finger and the right index finger. DATA BASE: CBC on admission was essentially normal with white count of 7,000, hemoglobin 14.2, hematocrit 42.5. Chemistry profile likewise was unremarkable except for a glucose of 220. Her hemoglobin A1c was 9.2%. HOSPITAL COURSE: Culture and sensitivity of the wound drainage was obtained and grew methicillin- sensitive staph aureus and also enterococcus. She was started on intravenous vancomycin as it covered both bacteria. She was seen in consultation by Dr. Ruiz who felt she might have osteomyelitis and ordered an MRI of her right hand. This confirmed osteomyelitis in the distal and intermediate phalanges of her right middle finger. After several days of intravenous antibiotics, he advised amputation of the middle finger and this was performed on 02/10/2019. She was seen in consultation by Dr. Joe Og, Infectious Disease who recommended continuing the intravenous vancomycin until her hand had substantially healed. At the time of discharge, she is healing fairly well with a slight opening on the ulnar aspect of the wound and he recommends continuing the antibiotics after discharge. I have planned 7 days but she may have to have this extended if her wound does not heal. Dr. Ruiz is considering amputation of the middle ray if there is any difficulty healing her wound. He expects to see her in 2 weeks in his office. Dr. Og will see her today before discharge and plan followup for her as well. She is to return to my office in 2-3 weeks for followup. DISCHARGE MEDICATIONS: 1. Vancomycin 1750 mg intravenous daily. 2. Humulin NPH insulin 20 units subcutaneously every 12 hours. 3. Hydrocodone APAP 10/325 mg one q.4 hours p.r.n. for pain. 4. Acetaminophen 650 mg q.6 hours as needed for pain. 5. Vitamin A and B ointment topically to fissures daily. 6. Olmesartan ? mg one daily 7. Pregabalin 300 mg p.o. twice a day. 8. Oxycodone 10 mg/325 one at bedtime. 9. Omeprazole 20 mg daily. 10.Pioglitazone 15 mg daily. 11.Naproxen 500 mg twice a day. 12.Duloxetine 60 mg q.a.m. 13.Metformin 1000 mg twice a day. 14.MiraLAX 17 grams twice a day. cc: Adam Macias MD MTDD
[2019-02-15] MEDS: VANCOMYCIN 1,750 MG in NS 250 ML IV SCH (12:50)
--- NOTE | 2019-02-15 14:38 | INFECTIOUS DISEASE PROGRESS NO ---
DATE: 02/15/2019 PRESENT ILLNESS: The patient is status post amputation of the right middle finger which was infected with oxacillin-sensitive Staph aureus and Enterococcus faecalis. MEDICATIONS: This is the 8th day of treatment with vancomycin. PHYSICAL EXAMINATION: Vital Signs: Temperature is 97.9 degrees, pulse 71, respirations 18, blood pressure 150/79. General: This is a chronically ill-appearing and morbidly obese-appearing female. She is in no acute distress. Head/eyes/ears/nose/throat: She can hear my spoken words and see near objects. She does not have any white patches in her mouth. Neck: No pain with movement. Lungs: Clear to auscultation. Cardiovascular: Regular heart rate. Extremities: The dressing was removed from the patient's right hand. The incision is intact except for a very small amount of serosanguineous drainage. There is no erythema of the skin and there is no purulence. Lungs: Clear to auscultation. Cardiovascular: Regular heart rate. Neurologic: Patient is alert. She can move her extremities. There is no tremor. LAB AND X-RAY STUDIES: No new radiographic study. Creatinine is 0.6, GFR is greater than 60. CBC shows a white count of 8260, hemoglobin 10.4, and platelet count 290,000. ASSESSMENT AND PLAN: The patient is status post amputation of her finger. I am going to put in a request to continue the patient's vancomycin for another 2 weeks and then come to my office at that time, and we will decide if further vancomycin is needed. COMORBIDITIES: Morbid obesity, diabetes mellitus, peripheral neuropathy, and prior amputations. cc: MD Adam Jones MD
== END 2019-02-15 15:31 | disposition home or self-care (01) | DRG 988 ==
LOC: DIRADM 14:56 → EDIPHOLD 15:29 → 4N 18:06
PROVIDERS: ADMIT Internal Medicine; ATTEND Internal Medicine